=== PATIENT | female | born 1960 | race African-American/Black ===

== ENCOUNTER → 2020-12-23 | Day surgery (SDC) | payer MEDICARE, MEDICAID ==
[~2020-12-23] VITALS: Ht 165.1 cm; Wt 125.2 kg
[~2020-12-23] MED LIST: ACET-2708 PO; ACYC200C31 PO; CLON0.5T23 PO; GABA-532 PO; HYDROMORPHONE HCL/PF 2MG/ML CPJ IV PRN; LABETALOL 5MG/ML SYR 20 MG/4 ML SYRINGE IV PRN; LACTATED RINGERS 1,000 ML IV SCH; LAMO100T65 PO; LITH600C PO; MEPERIDINE HCL/PF 25MG/ML CPJ IV PRN; METO100T16 PO; OMEP40CA20 PO; ONDANSETRON HCL 4MG/2ML INJ IV PRN; PROPOFOL 200MG/20ML VIAL IV ONE; SIMETHICONE 40 MG/0.6 ML 30ML ONE; ZOLP10TA2 PO
[2020-12-23 12:30] LABS: BASOPHILS % 1.2 % (0.0-2.0); EOSINOPHILS % 2.1 % (0.0-5.0); HEMATOCRIT. 37.2 % (36.0-48.0); HEMOGLOBIN. 11.9 g/dL (12.0-16.0); LYMPHOCYTES % 23.9 % (20.0-50.0); MEAN CORPUSCULAR HEMOGLOBIN 27.1 pg (28.0-32.0); MEAN CORPUSCULAR VOLUME 85.1 fL (81.0-99.0); MEAN PLATELET VOLUME 9.5 fl (7.4-10.4); MONOCYTES % 6.1 % (2.0-8.0); NEUTROPHILS % 66.7 % (40.0-76.0); PLATELET 229 x1000/uL (130-400); RED BLOOD CELL COUNT 4.38 mill/uL (4.2-5.4); RED CELL DISTRIBUTION WIDTH 13.8 % (11.6-14.6)
[2020-12-23 12:42] LABS: CHLORIDE 112 mEq/L (98-107)
== END | disposition home or self-care (01) ==
LOC: OR 08:53
PROVIDERS: ATTEND Internal Medicine Gastroenterology
DX: R19.4 Change in bowel habit (principal); R19.7 Diarrhea, unspecified; R10.9 Unspecified abdominal pain; R15.9 Full incontinence of feces; R15.2 Fecal urgency; K63.5 Polyp of colon; K29.50 Unspecified chronic gastritis without bleeding; K31.89 Other diseases of stomach and duodenum; K63.89 Other specified diseases of intestine; K31.7 Polyp of stomach and duodenum; K21.9 Gastro-esophageal reflux disease without esophagitis; I10 Essential (primary) hypertension; E78.5 Hyperlipidemia, unspecified; F41.9 Anxiety disorder, unspecified; F32.9 Major depressive disorder, single episode, unspecified; Z79.899 Other long term (current) drug therapy; Z98.890 Other specified postprocedural states; Z88.5 Allergy status to narcotic agent; Z88.8 Allergy status to other drugs, medicaments and biological substances; Z20.822 Contact with and (suspected) exposure to COVID-19
CPT/HCPCS: 36415; 43239; 45380; 80048; 85025; 87426; 88305; 88312; 88313; 93005; J2704